=== PATIENT | male | born 1945 | race Caucasian/White ===

== ENCOUNTER 2022-04-22 08:40 | Day surgery (SDC) | payer MEDICARE ==
[~2022-04-22] VITALS: Ht 175.3 cm; Wt 97.8 kg
[2022-04-22] MEDS ORDERED: ATORVASTATIN CA20 MG PO (09:25)
[2022-04-22] MEDS ORDERED: OMEP20ER PO (09:25)
[2022-04-22] MEDS ORDERED: Celexa20 MG PO (09:25)
--- NOTE | 2022-04-22 09:37 | NUR ---
04/22/22 0937 Fariba Parry AT 0939 PLEDGET AT [phone]
== END 2022-04-22 10:55 | disposition home or self-care (01) ==
LOC: ORSCSDS 08:40
PROVIDERS: Ophthalmology
PROC: 08RJ3JZ Replacement of Right Lens with Synthetic Substitute, Percutaneous Approach (ICD-10-PCS; principal; 2022-04-22 10:00)
DX: H25.11 Age-related nuclear cataract, right eye (principal); E66.9 Obesity, unspecified; Z68.31 Body mass index [BMI] 31.0-31.9, adult; Z79.82 Long term (current) use of aspirin; Z79.899 Other long term (current) drug therapy
CPT/HCPCS: J2001; J2250; J3010; J3301; J7040; V2632

== ENCOUNTER 2022-05-13 06:44 | Day surgery (SDC) | payer MEDICARE ==
[~2022-05-13] VITALS: Ht 175.3 cm; Wt 97.5 kg
[~2022-05-13 06:44] MED LIST: ATORVASTATIN CA20 MG PO; Celexa20 MG PO; OMEP20ER PO
--- NOTE | 2022-05-13 07:09 | NUR ---
05/13/22 0709 Fariba Parry AT 0659 PLEDGET AT [id number]
[2022-05-13] MEDS ORDERED: Aspir 8181 MG PO (07:10)
== END 2022-05-13 08:25 | disposition home or self-care (01) ==
LOC: ORSCSDS 06:44
PROVIDERS: Ophthalmology
PROC: 08DK3ZZ Extraction of Left Lens, Percutaneous Approach (ICD-10-PCS; principal; 2022-05-13 08:00)
DX: H25.12 Age-related nuclear cataract, left eye (principal); Z96.1 Presence of intraocular lens; K21.9 Gastro-esophageal reflux disease without esophagitis; E66.9 Obesity, unspecified; Z68.31 Body mass index [BMI] 31.0-31.9, adult; Z79.82 Long term (current) use of aspirin; Z79.899 Other long term (current) drug therapy
CPT/HCPCS: J2001; J2250; J3010; J3301; J7040; V2632

== ENCOUNTER 2025-01-20 14:17 | Emergency (ER) | payer MEDICARE ==
[~2025-01-20] VITALS: Ht 177.8 cm; Wt 97.5 kg
[~2025-01-20 14:17] MED LIST changes: +Aspir 8181 MG PO
[2025-01-20 14:25] VITALS: BP 161/88
[2025-01-20] MEDS ORDERED: AMOCLA875 PO (16:54)
== END 2025-01-20 16:57 | disposition home or self-care (01) ==
LOC: ER 14:17
DX: S63.280A Dislocation of proximal interphalangeal joint of right index finger, initial encounter (principal); M20.031 Swan-neck deformity of right finger(s); S01.21XA Laceration without foreign body of nose, initial encounter; W18.30XA Fall on same level, unspecified, initial encounter
CPT/HCPCS: 70450; 73140; 99284-25